=== PATIENT | female | born 1940 | race African-American/Black ===

== ENCOUNTER → 2017-04-14 | Outpatient (CLI) | payer OTHER ==
[~2017-04-14] MED LIST: ACID CONTROL150 M1 PO; ALENDRONATE SOD70 M1 PO; AMLODIPINE-OLM1 EAC1 PO; ASPIRIN-DIPYRI1 EACH PO; FLEXERIL10 MG PO; HYDROCODON-ACE1 EAC7 PO; KCL PO; LIPITOR20 MG PO; MAPAP500 MG PO; METHIMAZOLE10 MG PO; METOPROLOL SUCC25 MG PO; PATIENT'S PHARMACY; TRIAMTERENE-HC1 EAC1 PO; VOLTAREN75 MG PO; ZYRTEC10 M2 PO
--- NOTE | ~2017-04-14 | US128 ---
[id number] [facility]. [facility] [address] [place], [place] [address] [id number] O MR#: [id number] Acc #: [id number] NAME: MURIEL MOY : 1940 SEX: F STUDY DATE/TIME: 04/14/2017 13:43 UNIT: [facility] ROOM: STUDY DESCRIPTION: Thyroid Attending Physician: Shruti Oliver M.D. Referring Physician: Shruti Oliver M.D. Ordering Physician: Shruti Oliver M.D. Primary Care Physician: Florence Ledezma M.D. MEDICAL IMAGING REPORT This report is preliminary unless electronic signature is present EXAM Thyroid ultrasound, 04/14/17 COMPARISON STUDIES Head and neck CT angiogram dated 11/14/09 CLINICAL HISTORY Thyroid nodules on recent physical examination FINDINGS On the right, there are multiple subcentimeter, mostly hypoechoic nodules. In addition, there is a solid nodule in the mid pole portion of the gland about 11 x 10 x 13 mm, and a mostly cystic nodule in the mid lower pole about 13 x 14 x 15 mm. The left lobe of the gland again demonstrates multiple nodules, most under a centimeter in size. There is a lower pole 10 x 11 mm cystic nodule, a 10 x 7 x 12 mm mid pole solid nodule, a lower pole 9 x 10 x 9 mm nodule. IMPRESSION Multiple bilateral nodules. On the right, the largest solid nodule measures 11 x 10 x 13 mm, and there is a nearly purely cystic right side 13 x 14 x 15 mm nodule. Multiple nodules were demonstrated in the gland on a CT of the head and neck of 11/14/09. Unless there is a personal or family history suggesting increased wrist for malignancy, none of the nodules individually meets imaging criteria for tissue sampling in a patient of this age. Consider surveillance ultrasound. Dictated by... Reza Bonds M.D. THIS IS AN ELECTRONICALLY VERIFIED REPORT Reza Bonds M.D. at 04/16/2017 4:27 PM AARON/los TD: 04/16/2017 11:20 JOB #: [id number] MEDICAL IMAGING REPORT Page 1 of 1 COPY
== END | disposition home or self-care (01) ==
LOC: CGUS 13:18
DX: E04.2 Nontoxic multinodular goiter (principal)
CPT/HCPCS: 76536

== ENCOUNTER 2017-04-27 12:50 | Emergency (ER) | payer OTHER ==
--- NOTE | ~2017-04-27 | EKG ---
PATIENT: MURIEL MOY UNIT #: [id number] Ventricular Rate: 116 BPM Atrial Rate: 116 BPM P-R Interval: 172 ms QRS Duration: 68 ms Q-T Interval: 322 ms QTC Calculation(Bezet): 447 ms P [place]: 61 degrees Calculated R [place]: 3 degrees Calculated T [place]: 38 degrees Diagnosis Line: Sinus tachycardia Diagnosis Line: Septal infarct , age undetermined Diagnosis Line: Cannot rule out Inferior infarct , age Diagnosis Line: undetermined Diagnosis Line: Abnormal ECG Diagnosis Line: No previous ECGs available Diagnosis Line: Confirmed by JESSI KIM MD ([id number]) on 04/28/2017 Diagnosis Line: 3:26:20 PM INTERPRETING MD: JUDY ROTHMAN
--- NOTE | ~2017-04-27 | CR72 ---
[facility] A Service of [facility] & [facility] RADIOLOGY TEXT RESULTS PATIENT: MURIEL MOY LOCATION: [facility] : 42 UNIT #: [id number] AGE: [address]: Kaveh Modi MD SEX: F ORDER DR: [id number] [facility] [address] [place], [place] [address] [id number] E MR#: [id number] Acc #: [id number] NAME: MURIEL MOY : 1940 SEX: F STUDY DATE/TIME: 04/27/2017 13:43 UNIT: [facility] ROOM: STUDY DESCRIPTION: CR Chest Single View Portable Attending Physician: Kaveh Modi M.D. Ordering Physician: Yonatan Scott M.D. Primary Care Physician: Florence Ledezma M.D. MEDICAL IMAGING REPORT This report is preliminary unless electronic signature is present EXAM Chest portable, 04/27/2017 at 1343 hours CLINICAL HISTORY 76-year-old with 2-day history of shortness of air, body aches and weakness. Hypertension. COMPARISON 09/15/2007 FINDINGS Portable upright chest demonstrates normal heart size. There is a minimally tortuous descending thoracic aorta. The pulmonary vascularity is normal. The lungs are clear and there are no effusions. IMPRESSION No acute cardiopulmonary findings. Dictated by... Roxanen Ceja M.D. THIS IS AN ELECTRONICALLY VERIFIED REPORT Roxanne Ceja M.D. at 04/28/2017 9:48 AM Dasia TD: 04/28/2017 01:44 JOB #: [id number] MEDICAL IMAGING REPORT Page 1 of 1 COPY
--- NOTE | ~2017-04-27 | CT71 ---
[facility] A Service of [facility] RADIOLOGY TEXT RESULTS PATIENT: MURIEL MOY LOCATION: [facility] : 41 UNIT #: [id number] AGE: [address]: Kaveh Modi MD SEX: F ORDER DR: [id number] [facility] [address] [place], [place] [address] [id number] E MR#: [id number] Acc #: [id number] NAME: MURIEL MOY : 1940 SEX: F STUDY DATE/TIME: 04/27/2017 14:35 UNIT: [facility] ROOM: STUDY DESCRIPTION: CT Head Wo Contrast Attending Physician: Kaveh Modi M.D. Ordering Physician: Yonatan Scott M.D. Primary Care Physician: Florence Ledezma M.D. MEDICAL IMAGING REPORT This report is preliminary unless electronic signature is present EXAM Head CT without HISTORY 76-year-old female with weakness and body aches today. Patient keeps losing balance. No history of cancer indicated. TECHNIQUE Routine noncontrast head CT is reviewed. This CT exam was performed with one or more of the following radiation dose reduction techniques: automatic exposure control, adjustment of mA and/or kV according to patient size, and iterative reconstruction. COMPARISON STUDIES There is a prior head CT from 09/15/2007. FINDINGS There is no displaced calvarial fracture. The visualized paranasal sinuses are clear. The mastoid air cells are clear. Vascular calcifications are noted at the base of the brain. There is no extraaxial fluid collection or acute intracranial hemorrhage. Somewhat disproportionate volume loss noted in the posterior fossa. This is most commonly seen secondary to long-term alcohol or anti-seizure medication usage. Mild periventricular white matter low-attenuation is nonspecific but likely due to small vessel disease. Minor white matter low-attenuation in the subcortical and deep white matter. No intracranial mass effect. No hydrocephalus. No acute cortical infarct is appreciated but if this is of clinical concern, follow-up imaging is recommended, preferably with MRI if the patient is a candidate. [facility] A Service of [facility] RADIOLOGY TEXT RESULTS PATIENT: MURIEL MOY LOCATION: [facility] #: [id number] : 42 UNIT #: [id number] AGE: [address]: Kaveh Modi MD SEX: F ORDER DR: On comparison to the prior study from 2006, volume loss of posterior fossa has progressed from that time. IMPRESSION 1. No acute intracranial abnormality is appreciated but there is clinical concern for acute CVA, follow-up imaging would be indicated, preferably with MRI if the patient is a candidate. 2. Disproportionate volume loss of the posterior fossa is most commonly seen secondary to long-term alcohol or anti-seizure medication and this has progressed from 2006. 3. Mild probable sequelae of small vessel disease, please correlate for risk factors. 4. Prominent vascular calcifications at the base of the brain. Dictated by... Marlys Dumont M.D. THIS IS AN ELECTRONICALLY VERIFIED REPORT Marlys Dumont M.D. at 04/28/2017 1:35 PM GINA/pcl TD: 04/28/2017 07:00 JOB #: [id number] MEDICAL IMAGING REPORT Page 1 of 1 COPY
[2017-04-27 13:46] LABS: BASOPHIL% 0.6 % (0-2.5); EOSINOPHIL% 0.5 % (0.0-7.0); HEMATOCRIT 39.9 % (35.0-45.0); HEMOGLOBIN 13.4 gm/dL (12.0-16.0); LYMPHOCYTE# 0.8 X10e3 (1.0-3.5); LYMPHOCYTE% 25.1 % (17.0-45.0); MEAN CELL VOLUME 93.7 FL (83-96); MEAN CORPUSCULAR HEMOGLOBIN 31.4 PG (28-34); MEAN CORPUSCULAR HGB CONC 33.5 g/dL (30-36); MONOCYTE# 0.2 X10e3 (0-1.0); MONOCYTE% 7.1 % (3.0-12.0); NEUTROPHIL# 2.1 X10e3 (1.5-7.1); NEUTROPHIL% 66.7 % (40-75); PLATELET COUNT 205 X10e3 (140-420); RED BLOOD COUNT 4.26 X10e (3.90-5.30); RED CELL DISTRIBUTION WIDTH 14.1 % (11.0-15.5); WHITE BLOOD COUNT 3.2 X10e3 (4.0-10.5)
[2017-04-27 13:49] LABS: DIFF IND NO
[2017-04-27 13:59] LABS: PARTIAL THROMBOPLASTIN TIME 30.1 SECONDS (23.5-31.3); PROTHROMBIN TIME (PATIENT) 11.3 SECONDS (10.0-11.7)
[2017-04-27] MEDS ORDERED: PATIENT'S PHARMACY (13:59)
[2017-04-27] MEDS ORDERED: VOLTAREN75 MG PO (14:00)
[2017-04-27] MEDS ORDERED: LIPITOR20 MG PO (14:00)
[2017-04-27] MEDS ORDERED: METHIMAZOLE10 MG PO (14:00)
[2017-04-27] MEDS ORDERED: ASPIRIN-DIPYRI1 EACH PO (14:00)
[2017-04-27] MEDS ORDERED: HYDROCODON-ACE1 EAC7 PO (14:01)
[2017-04-27] MEDS ORDERED: AMLODIPINE-OLM1 EAC1 PO (14:01)
[2017-04-27 14:03] LABS: URINE SOURCE CLEAN CATCH
[2017-04-27] MEDS ORDERED: ALENDRONATE SOD70 M1 PO (14:03)
[2017-04-27] MEDS ORDERED: KCL PO (14:03)
[2017-04-27] MEDS ORDERED: TRIAMTERENE-HC1 EAC1 PO (14:03)
[2017-04-27] MEDS ORDERED: METOPROLOL SUCC25 MG PO (14:04)
[2017-04-27] MEDS ORDERED: MAPAP500 MG PO (14:04)
[2017-04-27] MEDS ORDERED: ZYRTEC10 M2 PO (14:04)
[2017-04-27 14:06] LABS: POC - CKMB 1.5 ng/mL (0.0-7.9); POC - TROPONIN <0.05 ng/mL (<=0.05)
[2017-04-27 14:08] LABS: ALBUMIN SERUM 3.3 g/dL (3.5-5.0); BILIRUBIN, DIRECT 0.2 mg/dL (0.0-0.2); BILIRUBIN,INDIRECT 0.8 mg/dL (0.0-0.9); BUN/CREATININE RATIO 12.22; CALCIUM SERUM 8.4 mg/dL (8.4-10.2); CREATININE SERUM 0.9 mg/dL (0.6-1.4); GLOM FILT RATE Estimated 72.5 mL/min (>60); PROTEIN TOTAL SERUM 6.4 g/dL (6.0-8.3)
[2017-04-27 14:09] LABS: URINE APPEARANCE CLOUDY; URINE BLOOD NEG (NEG); URINE COLOR DK YELLOW; URINE GLUCOSE NEG (NEG); URINE KETONE TRACE (NEG); URINE LEUKOCYTE ESTERASE 2+ (NEG); URINE NITRATE NEG (NEG); URINE PROTEIN 1+ (NEG)
[2017-04-27 14:13] LABS: CULTURE INDICATED? YES; URINE BACTERIA AUWI NEG (NEGATIVE); URINE SQUAMOUS EPITHELIAL CELL MANY /[HPF]
[2017-04-27 14:17] LABS: POTASSIUM 2.9 mmol/L (3.5-5.1)
[2017-04-27 14:20] LABS: U HYALINE CASTS AUWI 0-2 /[LPF]; URINE BILIRUBIN NEG (NEG); URINE MUCUS PRESENT
[2017-04-27 16:23] LABS: POC - CKMB 1.4 ng/mL (0.0-7.9); POC - TROPONIN <0.05 ng/mL (<=0.05)
== END 2017-04-27 18:37 | disposition home or self-care (01) ==
LOC: CED 12:50
PROVIDERS: Emergency Medicine
DX: R53.1 Weakness (principal); N30.00 Acute cystitis without hematuria; E87.6 Hypokalemia; I10 Essential (primary) hypertension; Z79.82 Long term (current) use of aspirin; Z79.899 Other long term (current) drug therapy
CPT/HCPCS: 36415; 70450; 71010; 80048; 80076; 81003; 82550; 82553; 83735; 84484; 85025; 85610; 85730; 87086; 93005; 96361; 96365; 96367; 99285; J0696; J3475

== ENCOUNTER 2017-05-02 17:21 | Emergency (ER) | payer OTHER ==
--- NOTE | ~2017-05-02 | EKG ---
PATIENT: MURIEL MOY UNIT #: [id number] Ventricular Rate: 115 BPM Atrial Rate: 115 BPM P-R Interval: 166 ms QRS Duration: 68 ms Q-T Interval: 324 ms QTC Calculation(Bezet): 448 ms P [place]: 65 degrees Calculated R [place]: 24 degrees Calculated T [place]: 60 degrees Diagnosis Line: Sinus tachycardia Diagnosis Line: Otherwise normal ECG Diagnosis Line: When compared with ECG of 27-APR-2017 13:05, Diagnosis Line: Questionable change in initial forces of Inferior Diagnosis Line: leads Diagnosis Line: Confirmed by TIMMY ARMANDO MD ([id number]) on Diagnosis Line: 05/03/2017 10:07:00 AM INTERPRETING MD: BHAVIK
--- NOTE | ~2017-05-02 | CT4 ---
[facility] A Service of [facility] RADIOLOGY TEXT RESULTS PATIENT: MURIEL MOY LOCATION: [facility] : 42 UNIT #: [id number] AGE: [address]: Yonatan Scott MD SEX: F ORDER DR: [id number] [facility] [address] [place], [place] [address] [id number] E MR#: [id number] Acc #: [id number] NAME: MURIEL MOY : 1940 SEX: F STUDY DATE/TIME: 05/02/2017 23:11 UNIT: [facility] ROOM: STUDY DESCRIPTION: CT Abd and Pelv Wo Cont Attending Physician: Yonatan Scott M.D. Ordering Physician: Yonatan Scott M.D. Primary Care Physician: Florence Ledezma M.D. MEDICAL IMAGING REPORT This report is preliminary unless electronic signature is present EXAM CT abdomen and pelvis without contrast INDICATION Low back pain, urinary tract infection since Thursday. TECHNIQUE Axial 3 mm images were obtained through the abdomen and pelvis without IV or oral contrast. This CT exam was performed with one or more of the following radiation dose reduction techniques: automatic exposure control, adjustment of mA and/or kV according to patient size, and iterative reconstruction. FINDINGS The lung bases are clear. The liver contains some tiny cysts and is otherwise normal. The gallbladder, spleen, pancreas, right adrenal gland and kidneys are normal. The left adrenal gland has a mass measuring 2 cm in diameter. It measures 11 Hounsfield units. In the sagittal image it measures 2.6 cm in diameter. The aorta is normal in size and there is no adenopathy. There are numerous colonic diverticula, particularly in the left colon, otherwise the bowel is normal. The uterus and adnexal regions and bladder are normal. The bones show degenerative changes at multiple disc space levels. There is a comparison CT from 09/15/2007 and the left adrenal mass was present at that time and has not changed significantly. IMPRESSION 1. Incidental left adrenal mass which is unchanged from 2006 and needs no further followup. 2. Mild degenerative change in the lumbar spine. STS. [facility] A Service of [facility] & [facility] / [facility] RADIOLOGY TEXT RESULTS PATIENT: MURIEL MOY LOCATION: [facility] : 41 UNIT #: [id number] AGE: [address]: Yonatan Scott MD SEX: F ORDER DR: 3. Otherwise normal. Dictated by... Gil Norton M.D. THIS IS AN ELECTRONICALLY VERIFIED REPORT Gil Norton M.D. at 05/04/2017 5:01 AM MARINA/shamir TD: 05/04/2017 00:13 JOB #: [id number] MEDICAL IMAGING REPORT Page 1 of 1 COPY
--- NOTE | ~2017-05-02 | CR72 ---
[facility] A Service of [facility] & [facility] RADIOLOGY TEXT RESULTS PATIENT: MURIEL MOY LOCATION: [facility] : 42 UNIT #: [id number] AGE: [address]: Yonatan Scott MD SEX: F ORDER DR: [id number] [facility] [address] [place], [place] [address] [id number] E MR#: [id number] Acc #: [id number] NAME: MURIEL MOY : 1940 SEX: F STUDY DATE/TIME: 05/02/2017 22:19 UNIT: [facility] ROOM: STUDY DESCRIPTION: CR Chest Single View Portable Attending Physician: Yonatan Scott M.D. Ordering Physician: Yonatan Scott M.D. Primary Care Physician: Florence Ledezma M.D. MEDICAL IMAGING REPORT This report is preliminary unless electronic signature is present EXAM Portable chest INDICATIONS There is shortness of air, congestion and cough starting today, 05/02/2017 COMPARISON 04/27/2017 FINDINGS A portable view of the chest was obtained. Heart size and vascularity are normal and the lungs are clear and the bones are unremarkable. IMPRESSION No active disease. Dictated by... Gil Norton M.D. THIS IS AN ELECTRONICALLY VERIFIED REPORT Gil Norton M.D. at 05/04/2017 5:01 AM MARINA/shamir TD: 05/03/2017 22:31 JOB #: [id number] MEDICAL IMAGING REPORT Page 1 of 1 COPY
[~2017-05-02 17:21] MED LIST changes: -ACID CONTROL150 M1 PO; -FLEXERIL10 MG PO
[2017-05-02 19:48] LABS: BASOPHIL% 0.7 % (0-2.5); EOSINOPHIL# 0.1 X10e3 (0-0.7); EOSINOPHIL% 0.9 % (0.0-7.0); HEMATOCRIT 40.4 % (35.0-45.0); HEMOGLOBIN 13.5 gm/dL (12.0-16.0); LYMPHOCYTE# 2.2 X10e3 (1.0-3.5); MEAN CELL VOLUME 93.8 FL (83-96); MEAN CORPUSCULAR HEMOGLOBIN 31.3 PG (28-34); MEAN CORPUSCULAR HGB CONC 33.4 g/dL (30-36); MEAN PLATELET VOLUME 7.7 FL (6.5-11.5); MONOCYTE# 0.5 X10e3 (0-1.0); MONOCYTE% 7.9 % (3.0-12.0); NEUTROPHIL# 3.9 X10e3 (1.5-7.1); NEUTROPHIL% 58.5 % (40-75); PLATELET COUNT 362 X10e3 (140-420); RED BLOOD COUNT 4.31 X10e (3.90-5.30); RED CELL DISTRIBUTION WIDTH 14.6 % (11.0-15.5); WHITE BLOOD COUNT 6.7 X10e3 (4.0-10.5)
[2017-05-02 19:55] LABS: DIFF IND NO
[2017-05-02 20:06] LABS: ALBUMIN SERUM 3.6 g/dL (3.5-5.0); BILIRUBIN, DIRECT 0.2 mg/dL (0.0-0.2); BILIRUBIN,INDIRECT 0.8 mg/dL (0.0-0.9); BUN/CREATININE RATIO 17.5; CALCIUM SERUM 9.4 mg/dL (8.4-10.2); CREATININE SERUM 0.8 mg/dL (0.6-1.4); GLOM FILT RATE Estimated 83.7 mL/min (>60); POTASSIUM 3.5 mmol/L (3.5-5.1); PROTEIN TOTAL SERUM 6.6 g/dL (6.0-8.3)
[2017-05-02 21:11] LABS: POC - CKMB 1.3 ng/mL (0.0-7.9); POC - TROPONIN <0.05 ng/mL (<=0.05)
[2017-05-02 22:35] LABS: URINE SOURCE CLEAN CATCH
[2017-05-02 22:42] LABS: URINE APPEARANCE CLOUDY; URINE BLOOD NEG (NEG); URINE COLOR DK YELLOW; URINE GLUCOSE NEG (NEG); URINE KETONE TRACE (NEG); URINE LEUKOCYTE ESTERASE 1+ (NEG); URINE NITRATE NEG (NEG); URINE PROTEIN TRACE (NEG); URINE SPECIFIC GRAVITY 1.026 (1.003-1.035)
[2017-05-02 22:45] LABS: CULTURE INDICATED? YES; URINE BACTERIA AUWI NEG (NEGATIVE); URINE SQUAMOUS EPITHELIAL CELL MOD /[HPF]
[2017-05-02 22:57] LABS: URINE BILIRUBIN POS (NEG)
[2017-05-02 22:59] LABS: URINE CRYSTALS CALCIUM OXALATE /[HPF]
[2017-05-02 23:21] LABS: POC - CKMB <1.0 ng/mL (0.0-7.9); POC - TROPONIN <0.05 ng/mL (<=0.05)
[2017-05-02] MEDS ORDERED: FLEXERIL10 MG PO (23:47)
[2017-05-02] MEDS ORDERED: ACID CONTROL150 M1 PO (23:47)
== END 2017-05-03 00:38 | disposition home or self-care (01) ==
LOC: CED 17:21
PROVIDERS: Emergency Medicine
DX: M54.5 Low back pain (principal); I10 Essential (primary) hypertension; Z79.899 Other long term (current) drug therapy
CPT/HCPCS: 36415; 71010; 74176; 80048; 80076; 81003; 82553; 84484; 85025; 87086; 93005; 96361; 96374; 96375; 99284; J1170; J1885